=== PATIENT | male | born 1985 | race Caucasian/White ===

== ENCOUNTER 2020-01-29 13:24 | Emergency (ER) | payer MEDICAID ==
[2020-01-29] MEDS ORDERED: Sodium Chloride 0.9% 10 ML Syringe FLUSH PRN (13:28)
[2020-01-29] MEDS ORDERED: Iopamidol 612 MG/ML 100 ML Bottle IVPUSH ONE (13:38)
[2020-01-29] MEDS: Sodium Chloride 0.9% 10 ML Syringe FLUSH PRN ×2 (13:56→14:05)
[2020-01-29] MEDS ORDERED: HYDROmorphone 1 MG/ML Syringe IVPUSH ONE ×2 (14:18→15:41)
--- NOTE | 2020-01-29 14:50 | EDM.PDOC ---
ED HPI GENERAL MEDICAL PROBLEM - General Chief Complaint: Trauma Stated Complaint: [facility] Time Seen by Provider: 01/29/20 13:28 Source of Information: Reports: Patient, EMS History Limitations: Reports: No Limitations - History of Present Illness INITIAL COMMENTS - FREE TEXT/NARRATIVE: The patient presents by [facility] for a fall. He was on the roof of a friends house helping him and he fell about 10 feet and landed on his right side. He did hit his head but he had no LOC. He has a contusion to his right forehead. He has pain to his right elbow and right wrist. He also has pain to his right hip. He denies chest pain. He has no abdominal pain. He has no medical problems. Onset: Sudden Duration: Minutes: Location: Reports: Head, Upper Extremity, Right, Lower Extremity, Right Quality: Reports: Sharp Severity: Moderate Improves with: Reports: Immobilization Worsens with: Reports: Movement Context: Reports: Trauma (Fell about 10 feet) Associated Symptoms: Reports: No Other Symptoms Right Generalized Pain Score (Numeric/FACES): 7 - Related Data Allergies Allergy/AdvReac Type Severity Reaction Status Date / Time azathioprine [From Imuran] Allergy Vomiting Verified 01/29/20 13:37 Home Meds: Home Meds Hydrocodone/Acetaminophen [Hydrocodone-Acetamin 5-325 mg] 1 - 2 each PO Q6HR PRN #20 tablet 01/29/20 [Rx] ursodioL [Ursodiol] 1 cap PO DAILY 01/29/20 [History] Past Medical History Respiratory History: Reports: Asthma Gastrointestinal History: Reports: Other (See Below) Other Gastrointestinal History: PVC Psychiatric History: Reports: Anxiety - Past Surgical History HEENT Surgical History: Reports: Tonsillectomy Social & Family History - Tobacco Use Tobacco Use Status *Q: Current Every Day Tobacco User Years of Tobacco use: 10 Packs/Tins Daily: 1 - Caffeine Use Caffeine Use: Reports: None - Recreational Drug Use Recreational Drug Use: Yes Review of Systems - Review of Systems Review Of Systems: See Below Constitutional: Reports: No Symptoms Eyes: Reports: No Symptoms Ears: Reports: No Symptoms Nose: Reports: No Symptoms Mouth/Throat: Reports: No Symptoms Respiratory: Reports: No Symptoms Cardiovascular: Reports: No Symptoms GI/Abdominal: Reports: No Symptoms Genitourinary: Reports: No Symptoms Musculoskeletal: Reports: Other (right elbow, wrist and right hip) ED EXAM, GENERAL - Physical Exam Exam: See Below Exam Limited By: No Limitations General Appearance: Alert, No Apparent Distress Ears: Normal External Exam Nose: Normal Inspection Head: Other (Edema and ecchymosis to the right forehead) Neck: Normal Inspection, Supple, Non-Tender Respiratory/Chest: No Respiratory Distress, Lungs Clear, Normal Breath Sounds Cardiovascular: Regular Rate, Rhythm, No Edema, No Murmur GI/Abdominal: Soft, No Organomegaly, No Mass, Tender (mild tenderness toward the right lower abdomen) Back Exam: Normal Inspection Extremities: Other (Pain upon palpation to the right wrist, right elbow and right hip.) Neurological: Alert, Oriented, No Motor/Sensory Deficits ED TRAUMA PROCEDURES - Splinting Right Upper Extremity Splint Site: wrist and elbow Pre-Procedure NV Status: Normal Post-Procedure NV Status: Normal Splint Material: Fiberglass Splint Design: Thumb Spica, Posterior, Sling Applied & Form Fitted By: Provider Provider Post-Splint Application NV Check: NV Status Normal, Good Position Complications: No Course - Vital Signs Last Recorded V/S: Last Vital Signs Temp 97.0 F 01/29/20 13:28 Pulse 53 L 01/29/20 13:28 Resp 18 01/29/20 13:28 BP 112/95 H 01/29/20 13:28 Pulse Ox 96 01/29/20 13:28 - Orders/Labs/Meds Orders: Active Orders 24 hr Category Date Time Status Cardiac Monitoring [RC] . DIRECTED Care 01/29/20 13:28 Active Peripheral IV Care [RC] . DIRECTED Care 01/29/20 13:28 Active Abdomen Pelvis w Cont [CT] Stat Exams 01/29/20 13:29 Taken Cervical Spine wo Cont [CT] Stat Exams 01/29/20 13:29 Taken Chest 1V Frontal [CR] Stat Exams 01/29/20 13:29 Taken Elbow Min 3V Rt [CR] Stat Exams 01/29/20 13:30 Taken Head wo Cont [CT] Stat Exams 01/29/20 13:29 Taken Wrist 2V Rt [CR] Stat Exams 01/29/20 14:38 Taken Wrist Comp Min 3V Rt [CR] Stat Exams 01/29/20 13:30 Taken Sodium Chloride 0.9% [Saline Flush] Med 01/29/20 13:28 Active 10 ml FLUSH ASDIRECTED PRN Sodium Chloride 0.9% [Saline Flush] Med 01/29/20 13:38 Active 10 ml FLUSH ONETIME PRN Peripheral IV Insertion Adult [OM.PC] Stat Oth 01/29/20 13:28 Ordered Medication Orders Sodium Chloride (Saline Flush) 10 ml FLUSH ASDIRECTED PRN PRN Reason: Keep Vein Open Last Admin: 01/29/20 13:37 Dose: 10 ml Documented by: ARGENIS Sodium Chloride (Saline Flush) 10 ml FLUSH ONETIME PRN PRN Reason: Keep Vein Open Last Admin: 01/29/20 14:05 Dose: 10 ml Documented by: Admin: 01/29/20 13:56 Dose: 10 ml Documented by: ANDREW Labs: Laboratory Tests 01/29/20 01/29/20 Range/Units 13:35 13:35 WBC 6.47 (4.23-9.07) K/mm3 RBC 5.02 (4.63-6.08) M/mm3 Hgb 16.2 (13.7-17.5) gm/dl Hct 45.0 (40.1-51.0) % MCV 89.6 (79.0-92.2) fl MCH 32.3 H (25.7-32.2) pg MCHC 36.0 H (32.2-35.5) g/dl RDW Std Deviation 41.8 (35.1-43.9) fL Plt Count 303 (163-337) K/mm3 MPV 8.9 L (9.4-12.3) fl Neut % (Auto) 58.1 (34.0-67.9) % Lymph % (Auto) 27.8 (21.8-53.1) % Emmet % (Auto) 7.7 (5.3-12.2) % Eos % (Auto) 4.9 (0.8-7.0) Baso % (Auto) 0.6 (0.1-1.2) % Neut # (Auto) 3.75 (1.78-5.38) K/mm3 Lymph # (Auto) 1.80 (1.32-3.57) K/mm3 Emmet # (Auto) 0.50 (0.30-0.82) K/mm3 Eos # (Auto) 0.32 (0.04-0.54) K/mm3 Baso # (Auto) 0.04 (0.01-0.08) K/mm3 Sodium 138 (136-145) mEq/L Potassium 4.0 (3.5-5.1) mEq/L Chloride 103 (98-107) mEq/L Carbon Dioxide 27 (21-32) mEq/L Anion Gap 12.0 (5-15) BUN 10 (7-18) mg/dL Creatinine 1.1 (0.7-1.3) mg/dL Est Cr Clr Drug Dosing 93.27 mL/min Estimated GFR (MDRD) > 60 (>60) mL/min BUN/Creatinine Ratio 9.1 L (14-18) Glucose 116 H (74-106) mg/dL Calcium 8.7 (8.5-10.1) mg/dL Total Bilirubin 0.9 (0.2-1.0) mg/dL AST 87 H (15-37) U/L ALT 151 H (16-63) U/L Alkaline Phosphatase 233 H (46-116) U/L Total Protein 7.2 (6.4-8.2) g/dl Albumin 3.8 (3.4-5.0) g/dl Globulin 3.4 gm/dL Albumin/Globulin Ratio 1.1 (1-2) Lipase 166 (73-393) U/L Meds: Medications Generic Name Dose Route Start Last Admin Trade Name Freq PRN Reason Stop Dose Admin Sodium Chloride 10 ml 01/29/20 13:28 01/29/20 13:37 Saline Flush FLUSH 10 ml ASDIRECTED PRN Administration Keep Vein Open Sodium Chloride 10 ml 01/29/20 13:38 01/29/20 14:05 Saline Flush FLUSH 10 ml ONETIME PRN Administration Keep Vein Open Discontinued Medications Generic Name Dose Route Start Last Admin Trade Name Freq PRN Reason Stop Dose Admin Hydromorphone HCl 1 mg 01/29/20 14:18 01/29/20 14:22 Dilaudid IVPUSH 01/29/20 14:19 1 mg ONETIME ONE Administration Hydromorphone HCl 1 mg 01/29/20 15:41 01/29/20 15:45 Dilaudid IVPUSH 01/29/20 15:42 1 mg ONETIME ONE Administration Iopamidol 100 ml 01/29/20 13:38 01/29/20 14:05 Isovue-300 (61%) IVPUSH 01/29/20 13:39 100 ml ONETIME ONE Administration - Re-Assessments/Exams Free Text/Narrative Re-Assessment/Exam: 01/29/20 14:52 A trauma alert was called. The patient had an IV and he had a contusion to his forehead, right wrist and elbow pain and right hip pain. I ordered a CT of his head and cervical spine and abdomen and pelvis and an x-ray of his right wrist and elbow. I also ordered labs. His WBC CBC looks good. His AST was elevated at 87. His ALT was elevated at 15 1. His alk phos was elevated at 233. His lipase was negative. 01/29/20 14:[address] of his cervical spine shows nothing acute. The CT of his head shows normal brain, no sign of traumatic injury. Mild chronic right maxillary sinusitis. Mild-moderate right frontal scalp contusion. The CT of his abdomen and pelvis shows no acute abnormality and there is slight subcutaneous edema in the right flank region. The x-ray of the wrist shows a navicular fracture is suspected as seen on one view but not confirmed on the others. A dedicated navicular view is suggested for further evaluation. I have ordered this. The x-ray of his elbow shows a fracture of the radial head with hemarthrosis. His CXR looks good. 01/29/20 16:01 The x-ray shows minimally displaced avulsion from the scaphoid tubercle with adjacent soft tissue contusion/fluid. Positive ulnar variance. I splinted the patient and I will discharge him home with follow up withe Dr Rebolledo. Departure - Departure Time of Disposition: 16:05 Disposition: Home, Self-Care 01 Condition: Good Clinical Impression: Fall Qualifiers: Encounter type: initial encounter Qualified Code(s): W19.XXXA - Unspecified fall, initial encounter Right radial head fracture Qualifiers: Encounter type: initial encounter Fracture type: closed Fracture alignment: nondisplaced Qualified Code(s): S52.124A - Nondisplaced fracture of head of right radius, initial encounter for closed fracture Fracture of scaphoid of right wrist Qualifiers: Encounter type: initial encounter Scaphoid bone location: unspecified portion of scaphoid Fracture type: closed Fracture alignment: nondisplaced Qualified Code(s): S62.001A - Unspecified fracture of navicular [scaphoid] bone of right wrist, initial encounter for closed fracture Contusion, flank Qualifiers: Encounter type: initial encounter Qualified Code(s): S30.1XXA - Contusion of abdominal wall, initial encounter Forehead contusion Qualifiers: Encounter type: initial encounter Qualified Code(s): S00.83XA - Contusion of other part of head, initial encounter - Discharge Information *PRESCRIPTION DRUG MONITORING PROGRAM REVIEWED*: Not Applicable *COPY OF PRESCRIPTION DRUG MONITORING REPORT IN PATIENT DENZEL: Not Applicable Prescriptions: Hydrocodone/Acetaminophen [Hydrocodone-Acetamin 5-325 mg] 1 - 2 each PO Q6HR PRN #20 tablet PRN Reason: Pain Referrals: PCP,None [Primary Care Provider] - Abraham Rebolledo MD [Physician] - 1 Week Forms: ED Department Discharge Additional Instructions: Ice your arm for 15 minutes 3 to 5 times per day. Try to elevate your arm above your heart as much as you can for 2 days. Follow up with Dr Rebolledo within a week. Take tylenol or motrin for pain. If that does not work try the hydrocodone. Please return if you are worse. Sepsis Event Note (ED) - Evaluation Sepsis Screening Result: No Definite Risk - Focused Exam Vital Signs: Vital Signs Temp Pulse Resp BP Pulse Ox 01/29/20 13:28 97.0 F 53 L 18 112/95 H 96 - My Orders Last 24 Hours: My Active Orders 01/29/20 13:28 Cardiac Monitoring [RC] . DIRECTED Peripheral IV Care [RC] . DIRECTED Sodium Chloride 0.9% [Saline Flush] 10 ml FLUSH ASDIRECTED PRN Peripheral IV Insertion Adult [OM.PC] Stat 01/29/20 13:29 Abdomen Pelvis w Cont [CT] Stat Cervical Spine wo Cont [CT] Stat Chest 1V Frontal [CR] Stat Head wo Cont [CT] Stat 01/29/20 13:30 Elbow Min 3V Rt [CR] Stat Wrist Comp Min 3V Rt [CR] Stat 01/29/20 13:38 Sodium Chloride 0.9% [Saline Flush] 10 ml FLUSH ONETIME PRN 01/29/20 14:38 Wrist 2V Rt [CR] Stat - Assessment/Plan Last 24 Hours: My Active Orders 01/29/20 13:28 Cardiac Monitoring [RC] . DIRECTED Peripheral IV Care [RC] . DIRECTED Sodium Chloride 0.9% [Saline Flush] 10 ml FLUSH ASDIRECTED PRN Peripheral IV Insertion Adult [OM.PC] Stat 01/29/20 13:29 Abdomen Pelvis w Cont [CT] Stat Cervical Spine wo Cont [CT] Stat Chest 1V Frontal [CR] Stat Head wo Cont [CT] Stat 01/29/20 13:30 Elbow Min 3V Rt [CR] Stat Wrist Comp Min 3V Rt [CR] Stat 01/29/20 13:38 Sodium Chloride 0.9% [Saline Flush] 10 ml FLUSH ONETIME PRN 01/29/20 14:38 Wrist 2V Rt [CR] Stat
--- NOTE | 2020-02-01 14:00 | CT ---
"PROCEDURE INFORMATION: Exam: CT Abdomen And Pelvis With Contrast Exam date and time: 01/29/2020 1:43 PM Age: 34 years old Clinical indication: Pain and injury or trauma; Fall; Blunt; Generalized; Other: Right hip and pelvic pain; Injury date: 01/29/2020; Injury details: Fell off a roof TECHNIQUE: Imaging protocol: Computed tomography of the abdomen and pelvis with intravenous contrast. Contrast material: ISOVUE 300; Contrast volume: 100 ml; Contrast route: INTRAVENOUS (IV); COMPARISON: No relevant prior studies available. FINDINGS: Lungs: The visualized portions of the lung bases are normal. Heart: The visualized portions of the heart are unremarkable. Liver: The liver is normal. Gallbladder and bile ducts: The gallbladder is normal. Pancreas: The pancreas is normal. Spleen: The spleen is normal. Adrenal glands: The adrenal glands are normal. Kidneys and ureters: The kidneys are normal. The ureters are normal. Stomach and bowel: No over distention of bowel loops is seen. Appendix: A normal appendix is identified. Intraperitoneal space: No evidence of intraperitoneal free air. Vasculature: The aorta is normal. Lymph nodes: No pathologic lymph node enlargement is demonstrated. No pathologic lymph node enlargement is demonstrated. Urinary bladder: The bladder is normal. The bladder is normal. Reproductive: The prostate and seminal vesicles are normal. Bones/joints: Unremarkable AMMY KELLY | Final Radiology Report CONFIDENTIALITY STATEMENT This report is intended only for use by the referring physician, and only in accordance with law. If you received this in error, call [phone]. Page 2 of 2 Soft tissues: There is slight subcutaneous edema in the region of the right flank. IMPRESSION: 1. No acute abnormality. 2. There is slight subcutaneous edema in the right flank region. Thank you for allowing us to participate in the care of your patient. Dictated and Authenticated by: John Barr MD 01/29/2020 3:21 PM Central Time ([place] & [place]) [facility]"
--- NOTE | 2020-02-01 14:01 | CT ---
PROCEDURE INFORMATION: Exam: CT Cervical Spine Without Contrast Exam date and time: 01/29/2020 1:43 PM Age: 34 years old Clinical indication: Injury or trauma; Blunt trauma; Injury date: 01/29/2020; Injury details: Fall off of a roof; Contusion to right frontal area TECHNIQUE: Imaging protocol: Computed tomography images of the cervical spine without contrast. COMPARISON: No relevant prior studies available. FINDINGS: Bones/joints: Cervical vertebral morphology and alignment is normal. The vertebral facet joints are normal.There is no evidence of acute fracture, dislocation, or subluxation. Discs/Spinal canal/Neural foramina: No significant disc protrusion. No significant spinal canal stenosis. No significant neural foraminal narrowing. Soft tissues: The cervical soft tissues appear normal. The nasopharynx, oropharynx, hypopharynx, and larynx are normal. Lungs: The lung apices are normal. IMPRESSION: Normal, No sign of traumatic injury. Thank you for allowing us to participate in the care of your patient. Dictated and Authenticated by: Patrick Tolliver MD 01/29/2020 3:22 PM Central Time ([place] & [place]) [facility]
--- NOTE | 2020-02-01 14:02 | CT ---
PROCEDURE INFORMATION: Exam: CT Head Without Contrast Exam date and time: 01/29/2020 1:43 PM Age: 34 years old Clinical indication: Injury or trauma; Blunt trauma (contusions or hematomas); Consciousness not specified; Injury date: 01/29/2020; Injury details: Fall of a roof; Contusion to right frontal area TECHNIQUE: Imaging protocol: Computed tomography of the head without contrast. COMPARISON: No relevant prior studies available. FINDINGS: Brain: Cerebral volume and morphology is normal. There are no extraaxial collections, mass effect or hemorrhage. Parenchymal attenuation is normal. Cerebral ventricles: No ventriculomegaly. Bones/joints: Normal. No acute fracture. Paranasal sinuses: There is diffuse mucoperiosteal thickening in the right maxillary sinus, consistent with chronic sinusitis. Mastoid air cells: The mastoid air cells and middle ears are normally pneumatized. Soft tissues: Soft tissue swelling lies in the right frontal scalp. IMPRESSION: 1. Normal brain, no sign of traumatic injury. 2. Mild, chronic right maxillary sinusitis. 3. Mild-moderate right frontal scalp contusion. Thank you for allowing us to participate in the care of your patient. Dictated and Authenticated by: Patrick Tolliver MD 01/29/2020 3:18 PM Central Time ([place] & [place]) [facility]
--- NOTE | 2020-02-01 14:03 | CR ---
PROCEDURE INFORMATION: Exam: XR Right Elbow Exam date and time: 01/29/2020 2:05 PM Age: 34 years old Clinical indication: Pain; Right; Patient HX: Fell off roof, elbow px TECHNIQUE: Imaging protocol: XR Right elbow. Views: 3 or more views. COMPARISON: No relevant prior studies available. FINDINGS: Bones/joints: There is a comminuted mildly displaced right radial head fracture. There appears to be displacement of the anterior and probably the posterior fat pad suggesting hemarthrosis. Soft tissues: There is mild soft tissue swelling. IMPRESSION: Fracture radial head with hemarthrosis. Thank you for allowing us to participate in the care of your patient. Dictated and Authenticated by: John Barr MD 01/29/2020 3:26 PM Central Time ([place] & [place]) [facility]
--- NOTE | 2020-02-01 14:04 | CR ---
PROCEDURE INFORMATION: Exam: XR Right Wrist Exam date and time: 01/29/2020 2:08 PM Age: 34 years old Clinical indication: Pain; Patient HX: Fell off roof, right wrist px TECHNIQUE: Imaging protocol: XR Right wrist. Views: 3 or more views. COMPARISON: No relevant prior studies available. FINDINGS: Bones/joints: There appears to be a nondisplaced crack through the navicular. The alignment of the joints is anatomic and the joint spaces are maintained. Soft tissues: There is mild soft tissue swelling. IMPRESSION: A navicular fracture is suspected as seen on one view but not confirmed on the others. A dedicated navicular view is suggested for further evaluation. Thank you for allowing us to participate in the care of your patient. Dictated and Authenticated by: John Barr MD 01/29/2020 3:27 PM Central Time ([place] & [place]) [facility]
--- NOTE | 2020-02-01 14:05 | CR ---
PROCEDURE INFORMATION: Exam: XR Chest, 1 View Exam date and time: 01/29/2020 2:13 PM Age: 34 years old Clinical indication: Chest pain TECHNIQUE: Imaging protocol: XR of the chest Views: 1 view. COMPARISON: No relevant prior studies available. FINDINGS: Lungs: Aeration and architecture is normal Pleural space: The pleural surfaces are normal. There are no signs of effusion or pneumothorax. Heart/Mediastinum: The heart and mediastinum appear normal.. Bones/joints: Normal IMPRESSION: Normal Thank you for allowing us to participate in the care of your patient. Dictated and Authenticated by: Patrick Tolliver MD 01/29/2020 3:31 PM Central Time ([place] & [place]) [facility]
--- NOTE | 2020-02-01 14:06 | CR ---
PROCEDURE INFORMATION: Exam: XR Right Wrist Exam date and time: 01/29/2020 2:36 PM Age: 34 years old Clinical indication: Pain; Wrist; Right; Additional info: Stress view of scaphoid TECHNIQUE: Imaging protocol: XR Right wrist. Views: 1 or 2 views. COMPARISON: DX Wrist Comp Min 3V Rt 01/29/2020 2:08 PM FINDINGS: Bones/joints: The ulna is 6 mm longer than the adjacent radius (positive ulnar variance). There are 2 dystrophic ossicles adjacent to the ulnar styloid. There is a small avulsion from the tubercle of the lateral scaphoid consistent with a minimally displaced avulsion. There is no through and through scaphoid fracture. The avulsed fragment is 1-2 mm in size and is not apparent on the prior images. Soft tissues: There is local soft tissue contusion/fluid adjacent to the scaphoid. IMPRESSION: 1. Minimally displaced avulsion from the scaphoid tubercle with adjacent soft tissue contusion/fluid. 2. Positive ulnar variance. Thank you for allowing us to participate in the care of your patient. Dictated and Authenticated by: Patrick Tolliver MD 01/29/2020 4:10 PM Central Time ([place] & [place]) [facility]
== END 2020-01-29 16:45 | disposition home or self-care (01) ==
LOC: JD.ED 13:24
DX: S62.001A Unspecified fracture of navicular [scaphoid] bone of right wrist, initial encounter for closed fracture (principal); S52.124A Nondisplaced fracture of head of right radius, initial encounter for closed fracture; S30.1XXA Contusion of abdominal wall, initial encounter; S00.83XA Contusion of other part of head, initial encounter; J45.909 Unspecified asthma, uncomplicated; Z88.8 Allergy status to other drugs, medicaments and biological substances; Z79.899 Other long term (current) drug therapy; F17.210 Nicotine dependence, cigarettes, uncomplicated; W13.2XXA Fall from, out of or through roof, initial encounter
CPT/HCPCS: 29125; 36415; 70450; 71045; 72125; 73080; 73100; 73110; 74177; 80053; 83690; 85025; 96374; 96376; 99284; J1170; Q9967

== ENCOUNTER 2020-10-01 19:58 | Emergency (ER) | payer MEDICAID ==
--- NOTE | 2020-10-01 20:45 | EDM.PDOC ---
ED HPI GENERAL MEDICAL PROBLEM - General Chief Complaint: Chest Pain Stated Complaint: [facility] Time Seen by Provider: 10/01/20 20:14 Source of Information: Reports: Patient, RN Notes Reviewed - History of Present Illness INITIAL COMMENTS - FREE TEXT/NARRATIVE: 34 yr old male with onset of mild mid chest discomfort several hrs ago. Has not been recently ill. No hx of known medical problems. No radiation of pain to shoulder, arm or back. Minimal discomort at time of exam. Left Chest Pain Score (Numeric/FACES): 3 - Related Data Allergies Allergy/AdvReac Type Severity Reaction Status Date / Time azathioprine [From Imuran] Allergy Vomiting Verified 01/29/20 13:37 bupropion [From Wellbutrin] Allergy Swelling Verified 10/01/20 20:02 hydrocodone Allergy Hives Verified 10/01/20 20:02 Home Meds: Home Meds ursodioL [Ursodiol] 1 cap PO DAILY 01/29/20 [History] Past Medical History HEENT History: Reports: None Cardiovascular History: Reports: None Respiratory History: Reports: Asthma Gastrointestinal History: Reports: Other (See Below) Other Gastrointestinal History: PVC Genitourinary History: Reports: None Musculoskeletal History: Reports: Fracture Other Musculoskeletal History: right wrist after falling off a roof Jan 2020 Neurological History: Reports: None Psychiatric History: Reports: Anxiety Endocrine/Metabolic History: Reports: None Hematologic History: Reports: None Immunologic History: Reports: None Oncologic (Cancer) History: Reports: None Dermatologic History: Reports: None - Infectious Disease History Infectious Disease History: Reports: None - Past Surgical History Head Surgeries/Procedures: Reports: None HEENT Surgical History: Reports: Tonsillectomy Musculoskeletal Surgical History: Reports: Other (See Below) Other Musculoskeletal Surgeries/Procedures:: pins and plates and screws to right wrist/ elbow Social & Family History - Family History Family Medical History: No Pertinent Family History - Caffeine Use Caffeine Use: Reports: Coffee, Energy Drinks, Soda - Recreational Drug Use Recreational Drug Use: No ED ROS GENERAL - Review of Systems Review Of Systems: See Below Constitutional: Denies: Fever, Chills HEENT: Reports: No Symptoms Respiratory: Denies: Shortness of Breath, Pleuritic Chest Pain, Cough Cardiovascular: Reports: Chest Pain GI/Abdominal: Denies: Abdominal Pain, Nausea, Vomiting Musculoskeletal: Denies: Shoulder Pain, Arm Pain, Back Pain Skin: Reports: No Symptoms Neurological: Denies: Dizziness, Numbness, Tingling, Weakness ED EXAM, GENERAL - Physical Exam Exam: See Below General Appearance: Alert, No Apparent Distress Head: Atraumatic Neck: Supple Respiratory/Chest: No Respiratory Distress, Lungs Clear, Normal Breath Sounds, Chest Non-Tender Cardiovascular: Regular Rate, Rhythm GI/Abdominal: Soft, Non-Tender. No: Guarding Back Exam: No: CVA Tenderness (L), CVA Tenderness (R) Extremities: Normal Inspection. No: Pedal Edema, Leg Pain, Increased Warmth, Redness Neurological: Alert, Oriented, No Motor/Sensory Deficits Skin Exam: Warm, Dry, Normal Color #1 Interpretation EKG Date: 10/01/20 Rhythm: NSR [place]: Normal P-Wave: Present QRS: Normal ST-T: Normal QT: Normal Course - Vital Signs Last Recorded V/S: Last Vital Signs Temp 96.9 F 10/01/20 21:45 Pulse 64 10/01/20 21:45 Resp 19 10/01/20 21:45 BP 116/84 10/01/20 21:45 Pulse Ox 97 10/01/20 21:45 - Orders/Labs/Meds Orders: Active Orders 24 hr Category Date Time Status EKG 12 Lead [EK] Stat Ther 10/01/20 20:01 Ordered Labs: Laboratory Tests 10/01/20 Range/Units 20:05 Troponin I < 0.017 (0.00-0.056) ng/mL Departure - Departure Time of Disposition: 21:47 Disposition: Home, Self-Care 01 Condition: Fair Clinical Impression: Atypical chest pain Instructions: Nonspecific Chest Pain, Adult, [id number] Referrals: Concepción Rucker, BULLET LUBRICATING MACHINE OPERATOR [Primary Care Provider] - Forms: ED Department Discharge Additional Instructions: Your heart and lungs have checked out well this evening. Follow up clinic as needed. Return to ED as needed if symptoms worsening in any way. Sepsis Event Note (ED) - Evaluation Sepsis Screening Result: No Definite Risk - My Orders Last 24 Hours: My Active Orders 10/01/20 20:01 EKG 12 Lead [EK] Stat - Assessment/Plan Last 24 Hours: My Active Orders 10/01/20 20:01 EKG 12 Lead [EK] Stat
--- NOTE | 2020-10-01 21:22 | CR ---
Chest: Portable view of the chest was obtained. Comparison: No prior chest imaging is available. Heart size and mediastinum are normal. Lungs are clear with no acute parenchymal change. No acute osseous abnormality is appreciated. Impression: 1. Nothing acute is appreciated on portable chest x-ray. Diagnostic code #1
== END 2020-10-01 21:45 | disposition home or self-care (01) ==
LOC: JD.ED 19:58
DX: R07.89 Other chest pain (principal); Z88.5 Allergy status to narcotic agent; Z88.8 Allergy status to other drugs, medicaments and biological substances
CPT/HCPCS: 36415; 71045; 71045-26; 84484; 93005; 93010; 99283; 99285-25

== ENCOUNTER 2021-08-03 16:27 | Emergency (ER) | payer MEDICAID ==
[2021-08-03] MEDS ORDERED: Ketorolac 60 MG/2 ML SDV IM ONE (17:11)
== END 2021-08-03 18:38 | disposition home or self-care (01) ==
LOC: JD.ED 16:27
DX: S69.91XA Unspecified injury of right wrist, hand and finger(s), initial encounter (principal); S59.901A Unspecified injury of right elbow, initial encounter; Z86.16 Personal history of COVID-19; Z79.899 Other long term (current) drug therapy; Z88.8 Allergy status to other drugs, medicaments and biological substances; Z88.5 Allergy status to narcotic agent; Z88.1 Allergy status to other antibiotic agents; W17.89XA Other fall from one level to another, initial encounter
CPT/HCPCS: 73080; 73110; 96372; 99283; J1885

== ENCOUNTER 2021-10-31 13:36 | Emergency (ER) | payer MEDICAID | END 2021-10-31 13:50 | disposition left against medical advice (07) | LOC: JD.ED 13:36 | DX: Z53.21 Procedure and treatment not carried out due to patient leaving prior to being seen by health care provider (principal) ==

== ENCOUNTER 2022-06-18 16:09 | Emergency (ER) | payer MEDICAID | END 2022-06-18 18:10 | disposition home or self-care (01) | LOC: JD.ED 16:09 | DX: R10.11 Right upper quadrant pain (principal); R09.1 Pleurisy; Z88.5 Allergy status to narcotic agent; Z88.8 Allergy status to other drugs, medicaments and biological substances | CPT/HCPCS: 99283 ==